=== PATIENT | female | born 1985 | race Caucasian/White ===

== ENCOUNTER 2016-11-30 14:22 | Emergency (ER) | payer OTHER ==
[2016-11-30 15:11] VITALS: BP 128/69
[2016-11-30] MEDS ORDERED: Tetan/Diph/Pertus SYR(Tdap)* 0.5 ML SYR(BOOSTRIX) use SYR IM ONE (16:04)
--- NOTE | 2016-11-30 16:15 | UC ---
Lower Extremity/Ankle HPI - HPI Summary HPI Summary: walking in barn boots lst night and stepped on nail with L foot, went through boot and into sole of L foot near L great toe. Had to physically pull her foot off the nail, and boot was still adhered. Nail appeared intact. Here today because she is unsure when her last tdap was. Is sore and having trouble walking directly on the spot, but is bearing weight. - History of Current Complaint Chief Complaint: UCLowerExtremity Stated Complaint: PUNCTURE WOUND FOOT Time Seen by Provider: 11/30/16 15:58 Hx Obtained From: Patient Hx Last Menstrual Period: iud ?: No Onset/Duration: Sudden Onset Severity Initially: Moderate Severity Currently: Mild Aggravating Factor(s): Standing, Ambulation Alleviating Factor(s): Rest Able to Bear Weight: Yes - Allergies/Home Medications Allergies/Adverse Reactions: Allergies Allergy/AdvReac Type Severity Reaction Status Date / Time No Known Allergies Allergy Verified 05/19/16 15:17 PMH/Surg Hx/FS Hx/Imm Hx Previously Healthy: Yes - Surgical History Surgical History: None - Family History Known Family History: Positive: Cardiac Disease - maternal grandmother Negative: Hypertension, Diabetes - Social History Alcohol Use: Occasionally Substance Use Type: None Smoking Status (MU): Never Smoked Tobacco - Immunization History Most Recent Tetanus Shot: need tetnus Review of Systems Constitutional: Negative Skin: Other - L foot PW Eyes: Negative ENT: Negative Respiratory: Negative Cardiovascular: Negative Gastrointestinal: Negative Genitourinary: Negative Motor: Negative Neurovascular: Negative Musculoskeletal: Negative Neurological: Negative Psychological: Negative All Other Systems Reviewed And Are Negative: Yes Physical Exam Triage Information Reviewed: Yes Appearance: Well-Appearing, No Pain Distress, Well-Nourished Vital Signs: Initial Vital Signs Temp 98 F 11/30/16 15:08 Pulse 64 11/30/16 15:08 Resp 18 11/30/16 15:08 BP 128/69 11/30/16 15:08 Pulse Ox 100 11/30/16 15:08 Vital Signs Reviewed: Yes Eye Exam: Normal Eyes: Positive: Conjunctiva Clear ENT Exam: Normal ENT: Positive: Normal ENT inspection, Hearing grossly normal, Pharynx normal, TMs normal Dental Exam: Normal Neck exam: Normal Respiratory Exam: Normal Respiratory: Positive: Chest non-tender, Lungs clear, Normal breath sounds, No respiratory distress, No accessory muscle use Cardiovascular Exam: Normal Cardiovascular: Positive: RRR, No Murmur Musculoskeletal Exam: Normal Neurological Exam: Normal Neurological: Positive: Alert Psychological Exam: Normal Skin Exam: Other - PW to L ball of foot near 1st MTP joint no erythema, tenderness, drainage or streaking Lower Extremity Course/Dx - Differential Dx/Diagnosis Provider Diagnoses: L foot nail PW through shoe Discharge - Discharge Plan Condition: Stable Disposition: HOME Prescriptions: Ciprofloxacin HCl [Cipro 500 MG TAB] 500 mg PO BID #6 tab Patient Education Materials: Puncture Wound (ED) Referrals: Lauro Duff MD [Primary Care Provider] - Additional Instructions: I expect you to have gradually decreasing pain from here (you should be walking normally within a few days). If you have increasing redness, streaking, or worsening pain, please return here or see your primary care provider.
== END 2016-11-30 16:21 | disposition home or self-care (01) ==
LOC: UCEAST 14:22
DX: S91.342A Puncture wound with foreign body, left foot, initial encounter (principal); W45.0XXA Nail entering through skin, initial encounter
CPT/HCPCS: 90471; 90715; 99212; G0463

== ENCOUNTER 2017-01-06 06:56 | Day surgery (SDC) | payer SELFPAY ==
[~2017-01-06 06:56] MED LIST: Buffered Lidocaine 0.9% SYRIN* 5 ML/SYR SYRINGE INTRADERM ONE; Dexamethasone IV* 4 MG/ML 1 ML (4 MG) IV SLOW PU ONE; Famotidine IV* 10 MG/ML 2 ML (20 mg) IV ONE
[2017-01-06] MEDS ORDERED: Ondansetron INJ* 2 MG/ML VIAL ONE ×2 (07:21→08:26)
[2017-01-06] MEDS ORDERED: Scopolamine 1.5 mg* PATCH ONE (07:22)
[2017-01-06] MEDS ORDERED: ceFAZolin 2 GM PREMIX(*) 2 GM/50 ML BAG IVPB ONE (07:22)
[2017-01-06] MEDS ORDERED: Famotidine IV* 10 MG/ML 2 ML (20 mg) ONE (07:22)
[2017-01-06] MEDS ORDERED: Dexamethasone IV* 4 MG/ML 1 ML (4 MG) ONE (07:22)
[2017-01-06] MEDS ORDERED: Buffered Lidocaine 0.9% SYRIN* 5 ML/SYR SYRINGE ONE (07:23)
[2017-01-06] MEDS ORDERED: ceFAZolin VIAL(*) 1 GM VIAL ONE (08:00)
[2017-01-06] MEDS ORDERED: Gentamicin ADULT (*) 40 MG/ML VIAL ONE (08:00)
[2017-01-06] MEDS ORDERED: Bacitracin IV* 50,000 UNITS INJ ONE (08:00)
[2017-01-06] MEDS ORDERED: fentaNYL* 50 MCG/ML 5 ML VIAL (250 MCG VIAL) ONE (08:26)
[2017-01-06] MEDS ORDERED: Midazolam* 1 MG/ML 5 ML VIAL (5 MG) ONE (08:26)
[2017-01-06] MEDS ORDERED: Lidocaine 2% PF * 5 ML VIAL ONE (08:26)
[2017-01-06] MEDS ORDERED: Propofol* 10 MG/ML 20 ML BTL IV PUSH ONE (08:26)
[2017-01-06] MEDS ORDERED: Atracurium* 10 MG/ML 10 ML VIAL ONE (08:30)
[2017-01-06] MEDS ORDERED: fentaNYL* 50 MCG/ML 2 ML VIAL (100 MCG VIAL) ONE ×2 (09:27→11:17)
[2017-01-06] MEDS ORDERED: DiMENhydriNATE IV* 50 MG/ML VIAL IV PUSH PRN (09:55)
[2017-01-06] MEDS ORDERED: oxyCODONE/Acetamin 5/325 MG* TAB PO PRN (09:55)
[2017-01-06] MEDS ORDERED: HYDROmorphone* 1 MG/ML 1 ML SYR IV PRN (09:55)
[2017-01-06] MEDS ORDERED: fentaNYL* 50 MCG/ML 2 ML VIAL (100 MCG VIAL) IV PRN (09:55)
[2017-01-06] MEDS ORDERED: HYDROcodone/ACETAMIN 5-325 MG* 1 TAB ONE ×2 (11:06→14:39)
[2017-01-06] MEDS ORDERED: DiMENhydriNATE IV* 50 MG/ML VIAL ONE (12:02)
[2017-01-06] MEDS ORDERED: Glycopyrrolate IV* 0.2 MG/ML 1 ML VIAL IV SLOW PU ONE (12:20)
[2017-01-06] MEDS ORDERED: Glycopyrrolate IV* 0.2 MG/ML 1 ML VIAL ONE ×2 (12:23→12:24)
[2017-01-06] MEDS: Glycopyrrolate IV* 0.2 MG/ML 1 ML VIAL IV SLOW PU ONE ×2 (12:25→12:37)
[2017-01-06 12:39] VITALS: BP 105/56
== END 2017-01-06 12:53 | disposition home or self-care (01) ==
LOC: OREAST 06:56
PROVIDERS: ATTEND Plastic Surgery
DX: Z41.1 Encounter for cosmetic surgery (principal)
CPT/HCPCS: 81025; A9270-GY; J0690; J1100; J1240; J1580; J2250; J2405; J2704; J3010

== ENCOUNTER 2017-06-01 07:18 | Emergency (ER) | payer OTHER ==
[2017-06-01 07:42] VITALS: BP 122/71
--- NOTE | 2017-06-01 08:48 | UC ---
Igor Baxter Alfonso, scribed for Petra Gregory MD on 06/01/17 at 0836 . General HPI - HPI Summary HPI Summary: This patient is a 31 year old F presenting to [facility] with a chief complaint of sinus congestion since one week ago. The patient rates the pain 4/10 in severity. Symptoms aggravated by nothing. Symptoms alleviated by hot showers and peppermint oil. Patient reports chills, a cold sore, right ear ache, and swollen lymph nodes. Patient denies fever. Patient on an IUD. Patients medication reviewed this visit. - History of Current Complaint Chief Complaint: UCGeneralIllness Stated Complaint: SINUS CONGESTION, EAR ACHE, AND JAW PAIN Time Seen by Provider: 06/01/17 07:49 Hx Obtained From: Patient Hx Last Menstrual Period: iud Onset/Duration: Gradual Onset, Lasting Weeks - 1, Still Present Timing: Constant Current Severity: Moderate Pain Intensity: 4 - /10 Associated Signs & Symptoms: Positive: Other - chills, a cold sore, right ear ache, and swollen lymph nodes. Patient denies fever. - Allergy/Home Medications Allergies/Adverse Reactions: Allergies Allergy/AdvReac Type Severity Reaction Status Date / Time MELON Allergy Blisters Uncoded 06/01/17 07:37 PMH/Surg Hx/FS Hx/Imm Hx Previously Healthy: No Cardiovascular History: Other - [place] Other Cardiovascular History: [place] - Surgical History Surgical History: Yes Surgery Procedure, Year, and Place: breast augmentations. wisdom teeth, 2009 - Family History Known Family History: Positive: Cardiac Disease - maternal grandmother. CHF, Diabetes Negative: Hypertension - Social History Alcohol Use: Occasionally Alcohol Amount: 1-2 , 2x per week Substance Use Type: None Smoking Status (MU): Never Smoked Tobacco - Immunization History Most Recent Tetanus Shot: need tetnus Review of Systems Constitutional: Chills, Other - Negative fever Skin: Other - lip lesion ENT: Ear Ache, Sinus Congestion, Other - cold sore, swollen lymph nodes. All Other Systems Reviewed And Are Negative: Yes Physical Exam Triage Information Reviewed: Yes Completion Of Physical Exam Limited Due To: Dementia Appearance: Well-Appearing, No Pain Distress, Well-Nourished Vital Signs: Initial Vital Signs Temp 97.9 F 06/01/17 07:38 Pulse 71 06/01/17 07:38 Resp 16 06/01/17 07:38 BP 122/71 06/01/17 07:38 Pulse Ox 100 06/01/17 07:38 Vital Signs Reviewed: Yes Eye Exam: Normal Eyes: Positive: Conjunctiva Clear ENT: Positive: Pharyngeal erythema, Nasal congestion, Nasal drainage, TM red - right with fluid, Sinus tenderness - max R>L, Uvula midline. Negative: TMs normal Dental Exam: Normal Neck exam: Normal Neck: Positive: Supple, Nontender, No Lymphadenopathy Respiratory Exam: Normal Respiratory: Positive: Chest non-tender, Lungs clear, Normal breath sounds, No respiratory distress, No accessory muscle use Cardiovascular Exam: Normal Cardiovascular: Positive: RRR, No Murmur Abdominal Exam: Normal Abdomen Description: Positive: Nontender, No Organomegaly, Soft Bowel Sounds: Positive: Present Musculoskeletal Exam: Normal Neurological Exam: Normal Psychological Exam: Normal Skin: Positive: Other - right lower latera lip pt with cold sore, small blister mild TTP no flcutance included [place] Course/Dx - Course Course Of Treatment: Pt with sinus congestion, ear pain progressive. Pt with cold sore, otitis media and sinus congestion on exam. Rx abx. hydrate. secretion precautions - Differential Dx - Multi-Symptom Provider Diagnoses: sinusitis, otitis media, cold sore Discharge - Discharge Plan Condition: Stable Disposition: HOME Prescriptions: Amoxicillin PO (*) [Amoxicillin 875 MG (*)] 875 mg PO BID #20 tab Ciproflox/Dexameth OTIC.SUSP* [Ciprodex OTIC.SUSP*] 2 drop OTIC TID #1 btl Patient Education Materials: Sinusitis (ED), Otitis Externa (ED) Referrals: [facility] [place] [place] [Outside] - 1 Week Additional Instructions: - Stay well hydrated. Drink plenty of non-alcoholic, non-caffinated beverages. - Take antibiotics and ear drops as prescribed until gone - After you have been on antibiotics for 2 days - change your toothbrush and your pillowcase. These infections are spread by secretions - do NOT share eating or drinking utensils - clean items you share with other people such as cell phones, computer mouse, TV remote, computer tablets, etc - Alternate ibuprofen (Advil, Motrin) 600mg and Tylenol every 3 hours for pain or fever. Take with food. Do NOT take for more than 4-5 days. - It is recommended you take a decongestant such as Claritin-D, Thelma-D, Sudafed - consider taking nasal spray for congestion - You have been given the contact information for the physician referral center. This office will help you schedule with a new primary care provider The documentation as recorded by the Igor nj Alfonso accurately reflects the service I personally performed and the decisions made by me, Petra Gregory MD.
== END 2017-06-01 08:51 | disposition home or self-care (01) ==
LOC: UCEAST 07:18
DX: J32.9 Chronic sinusitis, unspecified (principal); H66.91 Otitis media, unspecified, right ear; B00.1 Herpesviral vesicular dermatitis
CPT/HCPCS: 99212; G0463

== ENCOUNTER 2018-01-19 07:18 | Emergency (ER) | payer OTHER ==
[2018-01-19 07:43] VITALS: BP 128/94
--- NOTE | 2018-01-19 08:10 | UC ---
Complaint Female HPI - HPI Summary HPI Summary: I, Sherisalvatore Mayers, scribed for attending physician Petra Gregory MD. Pt is a 32 y/o F who presents to [facility] c/o increased urinary frequency and urgency with dysuria. Pt reports that yesterday symptoms began slightly and then today, they have become worse. When she tries to urinate, there is not much production though she feels the need to urinate. Additionally notes "tenderness" in the pelvic region, described as "feels like I have a full bladder" and as though "it could burst." On triage, pain is ranked 0/10 and she has not taken any medication for the pain. Denies any back pain, N/V, fever, and chills. No chance of - boyfriend had a vasectomy and she has an IUD. No concern of STDs/STIs and no PMHx UTIs. No history of yeast infections related to antibiotics Patient medication used this visit - History Of Current Complaint Chief Complaint: UCGU Stated Complaint: URINARY ISSUE Time Seen by Provider: 01/19/18 08:03 Hx Obtained From: Patient Hx Last Menstrual Period: iud Onset/Duration: Lasting Days - Since yesterday, Still Present Severity Currently: None Pain Intensity: 0 Pain Scale Used: 0-10 Numeric Aggravating Factor(s): Nothing Alleviating Factor(s): Nothing Associated Signs And Symptoms: Negative: Fever, Back Pain - Allergies/Home Medications Allergies/Adverse Reactions: Allergies Allergy/AdvReac Type Severity Reaction Status Date / Time MELON Allergy Blisters Uncoded 01/19/18 07:39 PMH/Surg Hx/FS Hx/Imm Hx - Additional Past Medical History Additional PMH: PMHx: Exercise-induced [place] Negative PMHx: DM, UTI Previously Healthy: Yes - Surgical History Surgical History: Yes Surgery Procedure, Year, and Place: breast augmentations. wisdom teeth, 2009 - Family History Known Family History: Positive: Cardiac Disease - maternal grandmother. CHF, Diabetes Negative: Hypertension - Social History Occupation: Employed Full-time - IT at [employer] Alcohol Use: Occasionally Alcohol Amount: 1-2 , 2x per week Substance Use Type: None Smoking Status (MU): Never Smoked Tobacco - Immunization History Most Recent Tetanus Shot: need tetnus Review of Systems Constitutional: Negative Skin: Negative Eyes: Negative ENT: Negative Respiratory: Negative Cardiovascular: Negative Gastrointestinal: Negative Genitourinary: Dysuria, Frequency, Urgency, Other - Pelvic "tenderness" Motor: Negative Neurovascular: Negative Musculoskeletal: Negative Neurological: Negative Psychological: Negative All Other Systems Reviewed And Are Negative: Yes - Comments Additional Review of Systems Comments: NEGATIVE: Back pain, N/V, fever, and chills Physical Exam - Summary Physical Exam Summary: Vital Signs Reviewed: Yes A+Ox3, no distress Eyes: Conjunctiva Clear ENT: Hearing grossly normal neck: supple Respiratory: Positive: No respiratory distress, No accessory muscle use Cardiovascular: skin color reflect adequate perfusion abd: soft + BS no guarding, no rebound no CVA b/l Musculoskeletal Exam: MARK x 4 without difficulty Neurological: Positive: Alert, ambulatory without difficulty Psychological: Positive: Normal Response To Family Skin: Positive: no rash, no ecchymosis Triage Information Reviewed: Yes Vital Signs: Initial Vital Signs Temp 97.9 F 01/19/18 07:39 Pulse 73 01/19/18 07:39 Resp 18 01/19/18 07:39 BP 128/94 01/19/18 07:39 Pulse Ox 100 01/19/18 07:39 Complaint Female Dx - Course Course Of Treatment: Patient medications and allergies reviewed this visit. Patient with dysuria and frequency starting yesterday. Patient with mild suprapubic pain. No nausea vomiting. No CVA tenderness. Urine consistent with UTI containing leuk esterase as well as blood. Will culture urine. We'll prescribe Keflex as well as Pyridium. Patient urged to drink fluids. Motrin Tylenol as needed. Return precautions discussed. Patient comfortable in agreement with plan. Declines work note - Differential Dx/Diagnosis Provider Diagnoses: UTI Discharge - Sign-Out/Discharge Documenting (check all that apply): Patient Departure - Discharge - Discharge Plan Condition: Stable Disposition: HOME Prescriptions: Cephalexin CAP* [Keflex 500 CAP*] 500 mg PO BID #14 cap Phenazopyridine TAB* [Pyridium 100 mg TAB*] 100 mg PO TID PRN #9 tab PRN Reason: burning with urination Patient Education Materials: Urinary Tract Infection in Women (ED) Referrals: [facility] [place] [facility] REFERR[facility] [Outside] No Primary Care Phys,NOPCP [Primary Care Provider] - Additional Instructions: - stay well hydrated - drink plenty of non-alcoholic, non caffinated beverages - your urine will be further tested - if you require any changes to your treatment, we will contact you - this usually take 2 days - Take your antibiotics exactly as prescribed until gone - Take pyridium as prescribed for discomfort. This will make your urine blaze orange - this is normal - Okay to alternate ibuprofen (Advil, Motrin) and Tylenol every 3 hours for pain. Take with food - Call your doctor or return with questions or concerns - Billing Disposition and Condition Condition: STABLE Disposition: Home
== END 2018-01-19 08:27 | disposition home or self-care (01) ==
LOC: UCEAST 07:18
DX: N39.0 Urinary tract infection, site not specified (principal); Z91.018 Allergy to other foods
CPT/HCPCS: 81003; 87077; 87086; 87186; 99212; G0463